=== PATIENT | male | born 1970 | race Caucasian/White ===

== ENCOUNTER 2021-01-22 19:27 | Inpatient (IN) ==
[2021-01-22 22:05] LABS: Urine Appearance Cloudy; Urine Bilirubin Negative (Negative); Urine Blood Negative (Negative); Urine Color Yellow; Urine Glucose 2+(150 mg/dL) (Negative); Urine Ketones Negative (Negative); Urine Nitrite Negative (Negative); Urine Protein Negative (Negative); Urine Specific Gravity 1.027 (1.002-1.030); Urine Urobilinogen Negative (Negative)
[2021-01-22 22:13] LABS: Urine Bacteria Absent (Absent); Urine Red Blood Cell 1+(3-5/hpf) (Absent); Urine Squamous Epithelial Cell Present (Absent); Urine White Blood Cell 1+(6-10/hpf) (Absent); Urine Yeast Present (Absent)
[2021-01-22 22:29] LABS: Urine Benzodiazepine Screen None Detected (None Detect); Urine Cannabinoids Screen Presumptive Positive (None Detect); Urine Opiates Screen None Detected (None Detect)
[2021-01-23 01:12] LABS: ABS Eosinophils 0.3 10^3/ul (0-0.6); ABS Lymphocytes 2.5 10^3/ul (1.0-4.8); ABS Monocytes 0.5 10^3/ul (0-0.8); ABS Neutrophils 4.4 10^3/ul (1.5-7.7); Eosinophil % 3.8 %; Hematocrit 46 % (42-52); Hemoglobin 15.6 g/dL (14.0-18.0); Lymphocyte % 32.1 %; Mean Corpuscular HGB Conc 34 g/dL (31-36); Mean Corpuscular Hemoglobin 31 pg (27-31); Mean Corpuscular Volume 90 fL (80-94); Mean Platelet Volume 7.4 fL (7.4-10.4); Platelet Count 231 10^3/uL (150-450); Red Cell Distribution Width 13 % (10-15); White Blood Count 7.8 10^3/uL (3.5-10.8)
[2021-01-23 01:30] LABS: ALT 15 U/L (7-52); AST 12 U/L (13-39); Acetaminophen < 15 mcg/mL; Albumin/Globulin Ratio 1.3 (1-3); Alcohol, S < 13 mg/dL (<13); Alkaline Phosphatase 35 U/L (35-149); Anion Gap 6 mmol/L (2-11); Blood Urea Nitrogen 9 mg/dL (6-24); CO2 Carbon Dioxide 25 mmol/L (22-32); Calcium 9.4 mg/dL (8.6-10.3); Chloride 106 mmol/L (101-111); Glucose 103 mg/dL (70-100); Potassium 3.8 mmol/L (3.5-5.0); Salicylate < 2.50 mg/dL (<30); Sodium 137 mmol/L (135-145)
[2021-01-23 01:45] LABS: TSH Ultra Thyroid Stim Horm 0.39 mcIU/mL (0.34-5.60)
[2021-01-23] MEDS: Nicotine PATCH 14 MG/24 HR PATCH TRANSDERM SCH (05:57)
[2021-01-23] MEDS ORDERED: Al Hydrox/Mg Hydrox/Simet LIQ 30 ML UDC PO PRN (13:47)
[2021-01-23 15:30] LABS: Rapid COVID-19 Molecular Undetected (Undetected)
[2021-01-24] MEDS: Nicotine PATCH 14 MG/24 HR PATCH TRANSDERM SCH (08:13)
[2021-01-24] MEDS ORDERED: SILDENAFIL 20 MG PO SCH (09:00)
[2021-01-25 07:18] LABS: HDL Cholesterol 40.3 mg/dL
[2021-01-25] MEDS: Nicotine PATCH 14 MG/24 HR PATCH TRANSDERM SCH (08:30)
[2021-01-26] MEDS: Nicotine PATCH 14 MG/24 HR PATCH TRANSDERM SCH (09:11)
[2021-01-27] MEDS: Nicotine PATCH 14 MG/24 HR PATCH TRANSDERM SCH (08:17)
[2021-01-28 08:04] VITALS: BP 126/77
[2021-01-28] MEDS: Nicotine PATCH 14 MG/24 HR PATCH TRANSDERM SCH (08:41)
== END 2021-01-28 16:00 | disposition home or self-care (01) | DRG 885 ==
LOC: ED 19:27 → BSU 01-23 13:47
PROVIDERS: ADMIT Psychiatry & Neurology Psychiatry; ATTEND Psychiatry & Neurology Psychiatry